=== PATIENT | female | born 1995 | race Caucasian/White ===

== ENCOUNTER 2017-07-07 23:41 | Emergency (ER) | payer OTHER ==
[2017-07-07 23:54] VITALS: BP 119/55
[2017-07-08 01:30] LABS: Albumin 5.1 g/dL (3.2-5.2); Calcium 10.6 mg/dL (8.6-10.3); EGFR African American 121.1 (>60); EGFR Non-African American 94.2 (>60); Globulin 3.3 g/dL (2-4); Potassium 3.4 mmol/L (3.5-5.0); Total Bilirubin 0.8 mg/dL (0.2-1.0); Total Protein 8.4 g/dL (6.4-8.9)
--- NOTE | 2017-07-08 01:41 | ED ---
Suellen Nazario SooYoung, scribed for Zachary Croft on 07/08/17 at 0017 . Substance Abuse/Use - HPI Summary HPI Summary: LEVEL 5 CAVEAT - ETOH INTOXICATION A 22 y/o F THAO presents to ED due to ETOH intoxication. Pt states she had too many drinks. She is a [employer] student. Denies pain. Denies PMHx. Pt came in voluntarily, to avoid getting a strike with [employer], for drinking too much. - History Of Current Complaint Chief Complaint: EDSubstanceAbuse Stated Complaint: ETOH Time Seen by Provider: 07/07/17 23:56 Hx Obtained From: Patient Ingestion History: Type/Name Of Drug - ETOH Overdose Characteristics: Oral - Allergies/Home Medications Allergies/Adverse Reactions: Allergies Allergy/AdvReac Type Severity Reaction Status Date / Time No Known Allergies Allergy Verified 07/07/17 23:54 PMH/Surg Hx/FS Hx/Imm Hx Previously Healthy: No - LEVEL 5 - ETOH INTOXICATION, denies PMHx Infectious Disease History: No Infectious Disease History: Reports: Traveled Outside the in Last 30 Days - [facility] - Family History Family History: LEVEL 5 CAVEAT - ETOH INTOXICATION - Social History Occupation: Student Lives: With Family Alcohol Use: Weekly Hx Substance Use: No Substance Use Type: Reports: None Hx Tobacco Use: No Smoking Status (MU): Never Smoked Tobacco Review of Systems - ROS Summary Review of Systems Summary: LEVEL 5 CAVEAT - ETOH INTOXICATION Positive: Other - pos: intoxicated. Negative: Fever All Other Systems Reviewed And Are Negative: No Physical Exam Triage Information Reviewed: Yes Vital Signs On Initial Exam: Initial Vitals Temp Pulse Resp BP Pulse Ox 99.1 F 134 18 119/55 96 07/07/17 23:52 07/07/17 23:52 07/07/17 23:52 07/07/17 23:52 07/07/17 23:52 Vital Signs Reviewed: Yes Appearance: Positive: Well-Appearing, No Pain Distress Skin: Positive: Warm, Skin Color Reflects Adequate Perfusion, Dry Head/Face: Positive: Normal Head/Face Inspection Eyes: Positive: EOMI, BETTY ENT: Positive: Normal ENT inspection Neck: Positive: Supple, Nontender Respiratory/Lung Sounds: Positive: Clear to Auscultation, Breath Sounds Present Cardiovascular: Positive: RRR, Pulses are Symmetrical in both Upper and Lower Extremities Abdomen Description: Positive: Nontender, Soft Bowel Sounds: Positive: Present Musculoskeletal: Positive: Normal, Strength/ROM Intact Neurological: Positive: Normal, Sensory/Motor Intact, Alert, Oriented to Person Place, Time Diagnostics - Vital Signs Vital Signs Temp Pulse Resp BP Pulse Ox 07/07/17 23:52 99.1 F 134 18 119/55 96 - Laboratory Result Diagrams: 07/08/17 00:20 Lab Statement: Any lab studies that have been ordered have been reviewed, and results considered in the medical decision making process. Course/Dx - Diagnoses Provider Diagnoses: Alcohol intoxication Discharge - Discharge Plan Condition: Stable Disposition: HOME Patient Education Materials: Abuse of Alcohol (ED) Referrals: [facility] [Primary Care Provider] - The documentation as recorded by the Suellen cuellar SooYoung accurately reflects the service I personally performed and the decisions made by , Zachary Croft.
[2017-07-08 01:54] LABS: BUN/Creatinine Ratio 11.5 (8-20)
== END 2017-07-08 01:51 | disposition home or self-care (01) ==
LOC: ED 23:41
DX: F10.129 Alcohol abuse with intoxication, unspecified (principal)
CPT/HCPCS: 36415; 80053; 80320; 99282; G0480